=== PATIENT | male | born 1955 | race Caucasian/White ===

== ENCOUNTER 2021-11-11 14:57 | Emergency (ER) | payer MEDICAID ==
[~2021-11-11] VITALS: Ht 180.3 cm; Wt 77.1 kg
--- NOTE | 2021-11-11 15:36 | NUR ---
ASSUME PATIENT CARE, RESTING IN BED C/O DIZZINESS (ROOM SPINNING SENSATION) X 2 WEEKS AND IS WORST TODAY. DENIES CHEST PAIN, PT IS DIALYSIS PATIENT AND WAS LAST DIALYZED ON MONDAY, PLACED ON MONITOR. VSS. SEEN AND EXAMINED BY DR TORRES WITH ORDERS, WILL CARRY OUT.
[2021-11-11 15:38] LABS: BASOPHILS % (AUTO) 0.5 % (0.0-2.0); EOSINOPHILS % (AUTO) 1.9 % (0.0-6.0); HEMATOCRIT 30 % (39-51); HEMOGLOBIN 10.2 g/dL (13.5-17.5); LYMPHOCYTES # (AUTO) 1.2 K/uL (0.8-4.8); LYMPHOCYTES % (AUTO) 23.2 % (20.0-44.0); MEAN CORPUSCULAR HGB CONC 34 g/dl (31.0-36.0); MEAN CORPUSCULAR VOLUME 96 fL (80-96); MONOCYTES # (AUTO) 0.4 K/uL (0.1-1.30); NEUTROPHILS # (AUTO) 3.3 K/uL (1.8-8.9); NEUTROPHILS % (AUTO) 66.4 % (43.0-81.0); PLATELET COUNT (AUTO) 196 K/uL (150-450); RED BLOOD CELL COUNT(AUTO) 3.13 MIL/uL (4.5-6.0)
--- NOTE | 2021-11-11 15:38 | NUR ---
RADIOLOGY AT BEDSIDE FOR CHEST XRAY.
--- NOTE | 2021-11-11 15:44 | NUR ---
PT TAKEN TO RADIOLOGY FOR HEAD CT SCAN VIA [facility]LLY.
[2021-11-11 15:54] LABS: ALANINE AMINOTRANSFERASE 14 U/L (12-78); ALBUMIN 3.4 g/dL (3.4-5.0); ALKALINE PHOSPHATASE 93 U/L (46-116); ASPARTATE AMINOTRANSFERASE 11 U/L (15-37); BILIRUBIN,DIRECT 0.2 mg/dL (0.0-0.2); BILIRUBIN,TOTAL 0.6 mg/dL (0.2-1.0); CALCIUM, SERUM 8.3 mg/dL (8.5-10.1); CARBON DIOXIDE 29 mmol/L (21-32); CHLORIDE 97 mmol/L (98-107); GLUCOSE 152 mg/dL (74-106); POTASSIUM 3.9 mmol/L (3.5-5.1); SODIUM SERUM 137 mmol/L (136-145); UREA NITROGEN, BLOOD 63 mg/dL (7-18)
[2021-11-11 16:00] LABS: CREATININE 7.6 mg/dL (0.6-1.3)
[2021-11-11 16:02] LABS: TOTAL PROTEIN, SERUM 6.8 g/dL (6.4-8.2)
[2021-11-11] MEDS ORDERED: MECL-159 PO (16:41)
--- NOTE | 2021-11-11 17:21 | NUR ---
[facility] [phone]
--- NOTE | 2021-11-11 17:24 | NUR ---
IV removed. Catheter intact and site benign. Pressure and 4x4 applied to site. No bleeding noted.Patient discharged to home in stable condition. Written and verbal after care instructions given. Patient verbalizes understanding of instruction.
[2021-11-11 17:25] VITALS: BP 145/70
== END 2021-11-11 17:25 | disposition home or self-care (01) ==
LOC: ER 15:14
DX: R42 Dizziness and giddiness (principal); I10 Essential (primary) hypertension; Z79.899 Other long term (current) drug therapy
CPT/HCPCS: 36415; 70450-TC; 71045-TC; 80048-TC; 80076-TC; 84484-TC; 85025-TC